=== PATIENT | male | born 1995 | race Caucasian/White ===

== ENCOUNTER 2020-11-03 14:48 | Emergency (ER) | payer BC, SELFPAY ==
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
[2020-11-03 14:58] VITALS: BP 136/80; PULSE 81; RESP 16; TEMP 36.8; O2SAT 99
[2020-11-03] MEDS: TETANUS,DIPHTHERIA,AC PERTUSSIS ADULT (0.5 ML) BOOSTRIX IM (15:16)
[2020-11-03] MEDS: SILVER SULFADIAZINE 1% CR 50 GM JAR (*BKC) 1 APPLIC TOPICAL (15:17)
== END 2020-11-03 15:40 | disposition home or self-care (01) ==
PROVIDERS: Emergency Provider Nurse Practitioner
DX: T23.242A Burn of second degree of multiple left fingers (nail), including thumb, initial encounter (principal); X08.8XXA Exposure to other specified smoke, fire and flames, initial encounter; Z23 Encounter for immunization
CPT/HCPCS: 16020; 90471; 90715; 99213; A9270; G0463

== ENCOUNTER 2020-11-11 08:57 | Emergency (ER) | payer BC, SELFPAY ==
[2020-11-11 09:01] VITALS: BP 118/77; PULSE 102; RESP 16; TEMP 36.9; O2SAT 100
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
[2020-11-11 09:57] VITALS: BP 122/78; PULSE 73; RESP 14; O2SAT 100
== END 2020-11-11 09:56 | disposition home or self-care (01) ==
LOC: ANHED 09:37
PROVIDERS: Emergency Provider Emergency Medicine
DX: T23.012A Burn of unspecified degree of left thumb (nail), initial encounter (principal); T31.0 Burns involving less than 10% of body surface; X03.0XXA Exposure to flames in controlled fire, not in building or structure, initial encounter
CPT/HCPCS: 99281

== ENCOUNTER 2021-03-15 11:26 | Emergency (ER) | payer OTHER, SELFPAY ==
[2021-03-15 11:37] VITALS: BP 125/83; PULSE 85; RESP 16; TEMP 37.1; O2SAT 100
--- NOTE | 2021-03-15 11:53 | ED.EAR ---
HPI - Ear Problem General Chief complaint: Ear Stated complaint: Water in Ears Time Seen by Provider: 03/15/21 11:53 Source: patient Mode of arrival: ambulatory Limitations: no limitations History of Present Illness HPI Narrative: Roger Quevedo is a 25 uo male with a PMH of chronic kidney stones and kidney pain who comes to [facility] with complaints of ear pain intermittently for weeks to months and left eye redness and crusting for the past few days. Related Data Allergies Allergy/AdvReac Type Severity Reaction Status Date / Time amoxicillin Allergy Mild Hives Verified 03/15/21 11:54 Penicillins Allergy Unknown Hives / Verified 03/15/21 11:54 Red Face prochlorperazine Allergy Unknown Other Verified 03/15/21 11:54 promethazine Allergy Unknown Confusion Verified 03/15/21 11:54 dicyclomine AdvReac Unknown Hyperactive Verified 03/15/21 11:54 lorazepam AdvReac Unknown Confusion Verified 03/15/21 11:54 metoclopramide AdvReac Unknown Confusion Verified 03/15/21 11:54 POTASSIUM CLAVULANATE Allergy Mild Unknown Uncoded 03/15/21 11:54 Review of Systems Review of Systems: CONSTITUTIONAL: Denies fever, chills, sweats. EYES: Denies visual changes, redness, left eye discharge. ENT: Denies rhinorrhea, congestion, sore throat, bilateral otalgia. CARDIOVASCULAR: Denies chest pain, palpitations, edema. RESPIRATORY: Denies dyspnea, wheezing, cough GASTROINTESTINAL: Denies abdominal pain, nausea, vomiting, diarrhea. GENITOURINARY: Denies dysuria, hematuria, abnormal discharge SKIN: Denies rash or itching. NEUROLOGIC: Denies numbness, or focal weakness. PSYCHIATRIC: Denies anxiety or depression. [facility] Past Medical History Medical History Burn Kidney stones Family History Family History Other CHF (congestive heart failure) Social History Social History (Updated 03/15/21 @ 11:56 by Tia Mccoy CNP) Smoking status: Current some day smoker Alcohol intake: current Gender identity (if verbalized by the patient): Male Comments At time of signature, I agree with nursing past medical, surgical, social and family history. There is no relevant family history pertinent to the presenting complaint. Exam Narrative: GENERAL: This is a well-nourished, well-developed patient, in mild distress. HEAD: normocephalic, atraumatic. EYES: Sclera clear/white. Vision is grossly intact. Left eye mild injection EARS: External ears normal, auditory canals erythema and without drainage, TMs with fluid behind them. Hearing grossly intact. NOSE: External nose normal without nasal discharge, nares without redness, no rhinorrhea. THROAT: Mucous membranes moist, posterior pharynx mild erythema NECK: Neck supple, non-tender CARDIOVASCULAR: Regular rate and rhythm without murmurs, gallops, or rubs. RESPIRATORY: Clear to auscultation. Breath sounds equal bilaterally. No wheezes, rales, or rhonchi. GASTROINTESTINAL: Abdomen soft, SKIN: warm, intact with no suspicious lesions or rash, good texture and turgor. NEURO: awake, alert, and oriented to person, place and time. There were no obvious focal neurologic abnormalities. Steady gait EXTREMITIES: Normal range of motion. BACK: Nontender without deformity Course Course Emergency Course: Patient comes with complaints of left eye injection and discharge, bilateral ear pain x2 months Start tobramycin for eye discharge Polymyxin eardrops Follow-up with primary care physician Vital Signs Vital signs: Vital Signs Temperature 98.7 F 03/15/21 11:37 Pulse Rate 85 03/15/21 11:37 Respiratory Rate 16 03/15/21 11:37 Blood Pressure 125/83 03/15/21 11:37 Pulse Oximetry 100 03/15/21 11:37 Temperature 98.7 F 03/15/21 11:37 Pulse Rate 85 03/15/21 11:37 Respiratory Rate 16 03/15/21 11:37 Blood Pressure 125/83 03/15/21 11:37 Pulse Oximetry 100 03/15/21 11:37
== END 2021-03-15 12:08 | disposition home or self-care (01) ==
PROVIDERS: Emergency Provider Nurse Practitioner
DX: H92.03 Otalgia, bilateral (principal); H10.32 Unspecified acute conjunctivitis, left eye; F17.200 Nicotine dependence, unspecified, uncomplicated
CPT/HCPCS: 99213; G0463

== ENCOUNTER 2021-03-17 14:28 | Emergency (ER) | payer OTHER, SELFPAY ==
[2021-03-17 14:38] VITALS: BP 150/100; PULSE 65; RESP 16; TEMP 37.1; O2SAT 100
--- NOTE | 2021-03-17 14:40 | ED.SKABFB ---
HPI - Skin/Abscess/Foreign Bdy General Chief complaint: Extremity Problem,Nontraumatic Stated complaint: Ingrown toe nail Time Seen by Provider: 03/17/21 14:38 Source: patient and RN notes reviewed Mode of arrival: ambulatory Limitations: no limitations History of Present Illness HPI narrative: 25-year-old male presents to the [facility] with complaints of an ingrown toenail to the right great toe. Pain, swelling and redness along with pus started last night. Toenails due to the way he cuts his toenails. States he has an appointment with a rn internship. Related Data Allergies Allergy/AdvReac Type Severity Reaction Status Date / Time amoxicillin Allergy Mild Hives Verified 03/17/21 14:37 Penicillins Allergy Unknown Hives / Verified 03/17/21 14:37 Red Face prochlorperazine Allergy Unknown Other Verified 03/17/21 14:37 promethazine Allergy Unknown Confusion Verified 03/17/21 14:37 dicyclomine AdvReac Unknown Hyperactive Verified 03/17/21 14:37 lorazepam AdvReac Unknown Confusion Verified 03/17/21 14:37 metoclopramide AdvReac Unknown Confusion Verified 03/17/21 14:37 POTASSIUM CLAVULANATE Allergy Mild Unknown Uncoded 03/17/21 14:37 Review of Systems Review of Systems: All systems reviewed & are unremarkable except as noted in HPI and below Constitutional: Constitutional: Reports no additional constitutional complaints, Denies chills and Denies fever(s) Eyes: Eyes: Reports no additional eye complaints ENT: Reports system reviewed and no additional complaints, except as documented Cardiovascular: Cardiovascular: Reports no additional cardiovascular complaints Respiratory: Respiratory: Reports no additional respiratory complaints Gastrointestinal: Gastrointestinal: Reports no additional gastrointestinal complaints Musculoskeletal: Musculoskeletal: Reports as per HPI Integumentary/Breasts: Skin/Breast: Reports as per HPI and Reports erythema (Right great toe around the toenail) Psychiatric: Psychiatric: Reports no additional psychiatric complaints Allergic/Immunologic: Allergic/Immunologic: Reports no additional allergic/immunologic complaints [facility] Past Medical History Medical History Burn Kidney stones Family History Family History Other CHF (congestive heart failure) Social History Social History (Reviewed 03/20/21 @ 13:47 by Rakel Telles Smoking status: Current some day smoker Alcohol intake: current Gender identity (if verbalized by the patient): Male Comments At the time of my signature, I reviewed and agree with the nursing past medical, surgical, social, and family history. There is no relevant family history pertinent to the patient complaint. Exam Const: General: healthy appearing, no acute distress and alert Nutritional Appearance: well nourished Orientation/consciousness: patient oriented x3 Limitations: no limitations HENMT: Head: normal to inspection Eyes: Conjunctivae: conjunctivae normal Pupils: Equal, round and reactive pupils present Neck: Neck: normal visual inspection Chest: Chest palpation & inspection: normal inspection of the chest Resp: Effort & Inspection: normal respiratory effort Auscultation: clear to auscultation bilaterally Cardio: Rate: regular rate Rhythm: regular rhythm Back/Spine/Pelvis: Back: no CVA tenderness Skin: Wounds: wounds noted (Fluctuant redness noted to the medial aspect of right great toe) Neuro: General: patient oriented x3, moves all extremities, no meningeal signs and no focal motor deficits Speech: normal speech Gait exam (Neuro): Normal gait present Extrem: General: normal to inspection Psych: Appearance: grossly normal and well kempt Mental Status: mental status grossly normal Affect: normal affect Attitude: cooperative Thought content: Yes Normal thought content present Course Course Emergency Course: Discharge instructi
[2021-03-17] MEDS: LIDOCAINE HCL 1% LOCAL INJ 20 ML VIAL 5 ML INFILTRATE (14:50)
== END 2021-03-17 15:18 | disposition home or self-care (01) ==
PROVIDERS: Emergency Provider Nurse Practitioner
DX: L03.031 Cellulitis of right toe (principal); L60.0 Ingrowing nail; F17.200 Nicotine dependence, unspecified, uncomplicated
CPT/HCPCS: 10060; 99213; G0463

== ENCOUNTER 2021-09-27 12:43 | Emergency (ER) | payer OTHER, SELFPAY ==
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
[2021-09-27 12:51] VITALS: BP 125/73; PULSE 84; RESP 16; TEMP 37.1; O2SAT 100
[2021-09-27 12:57] VITALS: BP 125/73; PULSE 84; RESP 16; TEMP 37.1; O2SAT 100
== END 2021-09-27 13:05 | disposition short-term general hospital (02) ==
LOC: EXPCOLL 12:46
PROVIDERS: Emergency Provider Nurse Practitioner
DX: N50.811 Right testicular pain (principal); N50.812 Left testicular pain; F17.200 Nicotine dependence, unspecified, uncomplicated
CPT/HCPCS: 99212; G0463

== ENCOUNTER 2021-09-27 14:58 | Emergency (ER) | payer OTHER, SELFPAY ==
--- NOTE | ~2021-09-27 | US_ITS ---
EXAMINATION: US scrotum doppler DATE: 09/27/2021 15:26 INDICATION: Bilateral pain. TECHNIQUE: Grayscale and Doppler ultrasound images of the testes were obtained. COMPARISON: None. FINDINGS: The right testis measures 4.3 x 2.3 x 3.2. The left testis measures 4.3 x 2.5 x 3.3. There is normal vascular flow to both testes. The right epididymis is normal with normal vascular flow. The left epididymis is normal with normal vascular flow. No hydrocele. Small bilateral varicoceles. IMPRESSION: 1. Small bilateral varicoceles. 2. No sonographic evidence of torsion. Reviewed, dictated and finalized at location K.
--- NOTE | 2021-09-27 15:11 | PC.NURSE ---
Upon entering room for triage pt was noted to be in ultrasound. Per conventional machinist pt was alert and oriented and able to ambulate to room independently.
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
[2021-09-27 15:23] VITALS: BP 128/82; PULSE 97; RESP 18; O2SAT 100
--- NOTE | 2021-09-27 15:45 | PC.NURSE ---
Lab called to add STD testing to Urine in lab.
[2021-09-27 15:56] LABS: Add Urine Microscopic? NO; Appearance Urine Clear (Clear); Bilirubin Urine Negative (Negative); Blood Urine Negative (Negative); Color Urine Yellow (Yellow); Glucose Urine UA Negative (Negative); Ketones Urine Negative (Negative); Leukocyte Esterase Ur Negative LEU/UL (Negative); Nitrate Urine Negative (Negative); Protein Urine Negative (Negative); Specific Grav Ur 1.026 (1.001-1.035); Urobilinogen Urine Negative mg/dL (<2.0)
[2021-09-27] MEDS: GENTAMICIN SULFATE INJ 80 MG/2 ML VIAL 240 MG IM (16:47)
[2021-09-27] MEDS: AZITHROMYCIN 250 MG TABLET 2000 MG PO (16:49)
[2021-09-27 17:05] VITALS: BP 112/88; PULSE 78; RESP 18; O2SAT 98
== END 2021-09-27 17:06 | disposition home or self-care (01) ==
PROVIDERS: Emergency Medicine; Emergency Provider Emergency Medicine
DX: N50.812 Left testicular pain (principal); N50.811 Right testicular pain; H10.9 Unspecified conjunctivitis; Z87.442 Personal history of urinary calculi; F17.210 Nicotine dependence, cigarettes, uncomplicated
CPT/HCPCS: 76870; 81003; 87491; 87591; 93976; 96372; 99283; 99284; A9270; J1580

== ENCOUNTER 2023-02-18 17:09 | Emergency (ER) | payer OTHER, SELFPAY ==
[2023-02-18 17:35] VITALS: BP 147/75; PULSE 64; RESP 18; TEMP 37.5; O2SAT 100
--- NOTE | 2023-02-18 18:13 | ED.NAVMDI ---
HPI - Nausea/Vomiting/Diarrhea General Chief complaint: Nausea/Vomiting/Diarrhea Stated complaint: Vomiting Time Seen by Provider: 02/18/23 18:05 Source: patient, family, RN notes reviewed and old records reviewed Mode of arrival: ambulatory Limitations: no limitations History of Present Illness HPI Narrative: 27 year old male accompanied by father who presents to express care with complaints of nausea vomiting body aches chills sore throat and bilateral ear pain for 3 days duration. Patient reports that he has taken Ibuprofen. Patient reports that he doesn't feel well and has nothing to do with his marijuana use, became upset when asked if he smoked marijuana frequently, states hasn't smoked any since sick. Patient reports that he last vomited 40 minutes prior to arrival. MD elicited complaint: nausea, vomiting, abdominal pain (generalized) and other (sore throat ear pain, body aches, fever) Onset (ago): day(s) (3) Description of vomiting: food contents and watery Associated nausea: Yes Associated abdominal pain: Yes Location of pain: other (mid abdominal) Pain scale (0-10): 8 Treatment prior to arrival: NSAIDs Related Data Allergies Allergy/AdvReac Type Severity Reaction Status Date / Time amoxicillin Allergy Mild Hives Verified 02/19/23 18:34 Penicillins Allergy Unknown Hives / Verified 02/19/23 18:34 Red Face prochlorperazine Allergy Unknown Other Verified 02/19/23 18:34 promethazine Allergy Unknown Confusion Verified 02/19/23 18:34 dicyclomine AdvReac Unknown Hyperactive Verified 02/19/23 18:34 lorazepam AdvReac Unknown Confusion Verified 02/19/23 18:34 metoclopramide AdvReac Unknown Confusion Verified 02/19/23 18:34 POTASSIUM CLAVULANATE Allergy Mild Unknown Uncoded 02/19/23 18:34 Review of Systems Review of Systems: CONSTITUTIONAL:Reports tactile fever, chills, or sweats. ENT: Reports rhinorrhea, congestion, sore throat, bilateral otalgia. CARDIOVASCULAR: Denies chest pain, palpitations, or edema. RESPIRATORY: Denies cough or dyspnea. GASTROINTESTINAL: Reports mid abdomen abdominal pain, nausea, vomiting, diarrhea. GENITOURINARY: Denies dysuria or hematuria. SKIN: Denies rash or itching. MUSCULOSKELETAL: Denies back pain, joint pain, reports body aches NEUROLOGIC: Denies headache, numbness, or weakness. All systems reviewed & are unremarkable except as noted in HPI and below PMFSH Past Medical History Medical History (Updated 02/19/23 @ 18:36 by Cherrie Morales NP) Burn Cyclical vomiting Depression Kidney stones Pancreatitis age 14 unknown cause Surgical History Surgical History (Updated 02/19/23 @ 18:27 by Cherrie Morales NP) History of tonsillectomy Status post placement of ureteral stent in past related to kidney stone Family History Family History Other CHF (congestive heart failure) Social History Social History (Updated 02/19/23 @ 18:25 by Cherrie Morales NP) Smoking status: Current some day smoker Tobacco type: e-cigarettes/vaping Alcohol intake: current Alcohol use details: states rare alcohol Substance use: current Substance use type: marijuana Last use: reports daily use Gender identity (if verbalized by the patient): Male Comments At time of signature, agree with nursing past medical, surgical, social and family history. There is no relevant family history pertinent to the presenting complaint Exam Narrative: GENERAL: Well-appearing, well-nourished, and in no acute distress. HEAD: Normocephalic, atraumatic. EYES: PERRLA, conjunctivae clear, and EOMI. ENT: Nares clear. Mucous membranes moist. Oropharynx without edema, erythema, or lesions. Tonsils not present and throat without exudate.TM's normal with dull light reflex. NECK: Supple. No lymphadenopathy CHEST: Speaks in full sentences. No respiratory distress.SAO2 100% on room air HEART: Regular rate and rhythm. ABDOMEN: Soft, f
== END 2023-02-18 18:20 | disposition home or self-care (01) ==
PROVIDERS: Emergency Provider Registered Nurse
DX: B34.9 Viral infection, unspecified (principal); R11.2 Nausea with vomiting, unspecified; F17.219 Nicotine dependence, cigarettes, with unspecified nicotine-induced disorders; Z20.822 Contact with and (suspected) exposure to COVID-19
CPT/HCPCS: 87081; 87426; 87804; 87880; 99213; C9803; G0463

== ENCOUNTER 2023-02-19 18:33 | Emergency (ER) | payer OTHER, SELFPAY ==
--- NOTE | ~2023-02-19 | CT_ITS ---
EXAMINATION: CT abdomen pelvis w con DATE: 02/20/2023 00:55 INDICATION: Nausea and vomiting. Upper abdominal pain for 4 days. TECHNIQUE: Computed tomography (CT) of the abdomen and pelvis was performed with 100 cc Omnipaque 350 intravenous contrast. The dose-length product was 171.76 mGy-cm. Automated exposure control and iter ative reconstruction technique were employed. COMPARISON: CT dated 10/25/2017 FINDINGS: There are punctate nonobstructing right renal stones. Lung bases are unremarkable. Heart si ze normal. No significant pleural or pericardial effusion. Small low-density lesion right hepatic lob e, most likely benign cyst or hemangioma. The spleen, pancreas, adrenal glands and kidneys are unrema rkable. Gallbladder is unremarkable. No free air or free fluid. No significant vascular abnormality. No lymphadenopathy. Nonobstructive bowel pattern. No free air or free fluid. IMPRESSION: 1. Nonobstructing right nephrolithiasis. Reviewed, dictated and finalized at location A.
[2023-02-19 19:26] VITALS: BP 136/81; PULSE 57; RESP 20; TEMP 37.3; O2SAT 100
[2023-02-19 19:44] LABS: Basophils Percent Auto 0.3 % (0.2-1.2); Hematocrit 44.6 % (42.0-52.0); Hemoglobin 15.9 g/dL (14.0-18.0); Immature Granulocyte Absolute 0.04 K/mm3 (0.00-0.031); Immature Granulocyte Percent A 0.3 % (0-0.5); Lymphocytes Absolute Auto 1.33 K/mm3 (0.9-3.2); Lymphocytes Percent Auto 11.1 % (18.3-44.2); Mean Corpuscular HGB Conc 35.7 g/dl (32-36); Mean Corpuscular Hemoglobin 31.4 pg (26-34); Mean Platelet Volume 10.2 fl (7.4-10.4); Monocytes Absolute Auto 0.4 K/mm3 (0.1-0.6); Monocytes Percent Auto 3.7 % (2.6-8.5); Neutrophils Absolute Auto 10.1 K/mm3 (1.3-6.7); Neutrophils Percent Auto 84.6 % (45.5-73.1); Platelet Count Result 303 k/mm3 (150-375); Red Blood Count 5.07 M/mm3 (4.6-6.20); Red Cell Distribution Width 11.9 % (11.5-14.5)
[2023-02-19 20:09] LABS: Alanine Aminotransferase 31 U/L (6-50); Albumin Level 5.3 g/dL (3.5-5.1); Alkaline Phosphatase 69 U/L (38-126); Anion Gap 13 mmol/L (8-16); Aspartate Amino Transferase 30 U/L (17-59); Bilirubin,Total 1.1 mg/dL (0.2-1.3); Blood Urea Nitrogen 13 mg/dL (9-20); Calcium 10.1 mg/dL (8.4-10.2); Carbon Dioxide 30 mmol/L (22-30); Chloride 95 mmol/L (98-107); Estimated CRCL calculation 71 ml/min; Estimated Glomerular Filt Rate > 60; Glucose 105 mg/dL (65-110); Lipase 35 U/L (23-300); Potassium 4.5 mmol/L (3.4-5.0); Sodium 138 mmol/L (137-145)
[2023-02-20] MEDS: ONDANSETRON INJ 4 MG/2 ML VIAL IV PUSH (00:23)
[2023-02-20] MEDS: SODIUM CHLORIDE 0.9% IV 1,000 ML 999 ML IV CONT ×2 (00:23→02:37)
--- NOTE | 2023-02-20 00:37 | ED.NAVMDI ---
HPI - Nausea/Vomiting/Diarrhea General Chief complaint: Nausea/Vomiting/Diarrhea Stated complaint: n/v x several days Time Seen by Provider: 02/19/23 23:46 Source: patient and old records reviewed Mode of arrival: ambulatory Limitations: no limitations History of Present Illness HPI Narrative: Patient is a 27-year-old male, with past medical history of cyclic vomiting syndrome, daily marijuana use, who presents ED with report of nausea and vomiting. Patient reports he has been unable to keep down any food or drink over the last 4 days due to persistent vomiting. He also reports having persistent pain throughout his upper abdomen. He has not been unable to take anything for pain due to the vomiting. He states he was recently around his cousins who were ill with similar symptoms. Patient also reports having a cough, subjective fevers, chills, body aches. Denies diarrhea or constipation. Patient was seen in urgent care a few days ago and prescribed Zofran, but there was an issue with the pharmacy and he was unable to pick this up yet. Related Data Allergies Allergy/AdvReac Type Severity Reaction Status Date / Time amoxicillin Allergy Mild Hives Verified 02/19/23 18:34 Penicillins Allergy Unknown Hives / Verified 02/19/23 18:34 Red Face prochlorperazine Allergy Unknown Other Verified 02/19/23 18:34 promethazine Allergy Unknown Confusion Verified 02/19/23 18:34 dicyclomine AdvReac Unknown Hyperactive Verified 02/19/23 18:34 lorazepam AdvReac Unknown Confusion Verified 02/19/23 18:34 metoclopramide AdvReac Unknown Confusion Verified 02/19/23 18:34 POTASSIUM CLAVULANATE Allergy Mild Unknown Uncoded 02/19/23 18:34 Review of Systems Review of Systems: CONSTITUTIONAL: See HPI. CARDIOVASCULAR: Denies chest pain. RESPIRATORY: See HPI. GASTROINTESTINAL: See HPI. GENITOURINARY: Denies dysuria or hematuria. MUSCULOSKELETAL: Reports myalgia. NEUROLOGIC: Denies headache, numbness, or weakness. All systems reviewed & are unremarkable except as noted in HPI and below PMFSH Past Medical History Medical History Burn Cyclical vomiting Depression Kidney stones Pancreatitis age 14 unknown cause Surgical History Surgical History History of tonsillectomy Status post placement of ureteral stent in past related to kidney stone Family History Family History Other CHF (congestive heart failure) Social History Social History Smoking status: Current some day smoker Tobacco type: e-cigarettes/vaping Alcohol intake: current Alcohol use details: states rare alcohol Substance use: current Substance use type: marijuana Last use: reports daily use Gender identity (if verbalized by the patient): Male Exam Narrative: GENERAL: Mildly ill appearing, thin, actively vomiting on exam. HEAD: Normocephalic, atraumatic. NECK: Supple. No adenopathy, no masses. RESPIRATORY: Airway patent, respirations nonlabored. Clear to auscultation bilaterally, no rales, rhonchi, wheezing. CARDIOVASCULAR: Regular rate and rhythm without murmurs, rubs, or gallops. Radial pulses 2+ and equal bilaterally. ABDOMINAL: Soft, diffuse tenderness throughout upper abdomen, no significant focal tenderness, nondistended, no hepatosplenomegaly. Normoactive BS. MUSCULOSKELETAL: Moves all extremities. Strength/ROM intact without gross deformities. SKIN: Warm, dry, normal color. No rashes. Eczematous rash to bilateral hands, which patient reports is chronic related to frequent handwashing. NEURO: A&O X3. Speech clear. Cranial nerves II-XII grossly intact. Steady gait. No ataxic movements. PSYCHIATRIC: Appropriate mood and affect. Normal interaction. Course Vital Signs Vital signs: Vital Signs Temperatur
[2023-02-20 00:41] LABS: Add Urine Microscopic? YES; Appearance Urine Cloudy (Clear); Bacteria Urine None Seen /hpf; Bilirubin Urine Negative (Negative); Blood Urine Negative (Negative); Color Urine Yellow (Yellow); Glucose Urine UA Negative (Negative); Ketones Urine 4+ mg/dL (Negative); Leukocyte Esterase Ur Negative LEU/UL (Negative); Nitrate Urine Negative (Negative); Non Pathogenic Casts 0-2; Protein Urine Trace mg/dL (Negative); RBC Urine 0-2 /hpf (0-2); Specific Grav Ur 1.022 (1.001-1.035); Squamous Epithelial Cell Urine None seen /hpf (Few); WBC Urine 0-5 /hpf
[2023-02-20 01:13] LABS: Influenza A QL RT-PCR Negative (Negative); Influenza B QL RT-PCR Negative (Negative); SARS-CoV-2 RNA PCR Negative (Negative)
[2023-02-20] MEDS: KETOROLAC 15 MG/ML VIAL (*BKC) IV PUSH (03:54)
[2023-02-20] MEDS: PANTOPRAZOLE SODIUM IV 40 MG VIAL IV PUSH (03:54)
[2023-02-20 04:54] VITALS: BP 118/72; PULSE 74; RESP 16; O2SAT 100
== END 2023-02-20 04:55 | disposition home or self-care (01) ==
PROVIDERS: Student in an Organized Health Care Education/Training Program; Emergency Provider Physician Assistant
DX: E86.0 Dehydration (principal); R11.2 Nausea with vomiting, unspecified; R10.9 Unspecified abdominal pain; Z20.822 Contact with and (suspected) exposure to COVID-19; F17.290 Nicotine dependence, other tobacco product, uncomplicated; Z87.442 Personal history of urinary calculi
CPT/HCPCS: 36415; 74177; 80053; 81001; 83690; 85025; 87636; 96361; 96374; 96375; 99284; C9113; J1885; J2405; J7030; Q9967

== ENCOUNTER 2023-05-31 13:25 | Inpatient (IN) | payer OTHER, MEDICAID, SELFPAY ==
--- NOTE | ~2023-05-31 | CT_ITS ---
EXAMINATION: CT abdomen pelvis w con DATE: 05/31/2023 15:56 INDICATION: RUQ abdomen pain, hx pancreatitis and Elevated LFT TECHNIQUE: Computed tomography (CT) of the abdomen and pelvis was performed with 100 mL Omnipaque-350 intravenous contrast. Automated exposure control and iterative reconstruction technique were employe d. The dose-length product was 172.10 mGy-cm. COMPARISON: 02/20/2023. FINDINGS: Lower thorax: Unremarkable Liver: 9 mm right lobe cyst or hemangioma. Subcentimeter hypodensities, too small to characterize but also likely represent cysts or hemangiomas. Biliary/Gallbladder: Gallbladder is normal. No bile duct dilation. Pancreas: Edematous slightly enlarged pancreas. Spleen: Normal. Adrenals:No mass. Kidneys: No suspicious mass, obstructing stone, or hydronephrosis. Nonobstructing punctate right ajime l calculi. GI tract: Moderate distal esophageal and gastric wall edema No small or large bowel dilation. Normal appendix. Mesentery/Peritoneum: No ascites, mass, or free air. Retroperitoneum: No mass. Pelvis: Partially distended urinary bladder with mild wall thickening. Soft Tissues: Soft tissues and body wall unremarkable. Bones: No acute osseous finding. IMPRESSION: Moderate esophagitis/gastritis. Mild edema and enlargement of the pancreas, may reflect uncomplicated acute interstitial pancreatitis in the appropriate clinical context. Correlate with pancreatic labs. Cystitis versus urinary bladder wall thickening from incomplete distention. Reviewed, dictated and finalized at location K. R CORE MACHINE OPERATOR IMPRESSION: Moderate esophagitis/gastritis. Mild edema and enlargement of the pancreas, may reflect uncomplicated acute int erstitial pancreatitis in the appropriate clinical context. Correlate with panc reatic labs. Cystitis versus urinary bladder wall thickening from incomplete distention.
[2023-05-31 13:28] VITALS: BP 141/81; PULSE 62; RESP 18; TEMP 36.8; O2SAT 100
[2023-05-31 14:01] LABS: Basophils Percent Auto 0.2 % (0.2-1.2); Hematocrit 44.9 % (42.0-52.0); Hemoglobin 15.3 g/dL (14.0-18.0); Immature Granulocyte Absolute 0.03 K/mm3 (0.00-0.031); Immature Granulocyte Percent A 0.3 % (0-0.5); Lymphocytes Absolute Auto 1.24 K/mm3 (0.9-3.2); Lymphocytes Percent Auto 10.9 % (18.3-44.2); Mean Corpuscular HGB Conc 34.1 g/dl (32-36); Mean Corpuscular Hemoglobin 30.8 pg (26-34); Mean Corpuscular Volume 90.3 fl (80-100); Mean Platelet Volume 10.4 fl (7.4-10.4); Monocytes Absolute Auto 0.6 K/mm3 (0.1-0.6); Monocytes Percent Auto 5.1 % (2.6-8.5); Neutrophils Absolute Auto 9.6 K/mm3 (1.3-6.7); Neutrophils Percent Auto 83.5 % (45.5-73.1); Platelet Count Result 306 k/mm3 (150-375); Red Blood Count 4.97 M/mm3 (4.6-6.20); Red Cell Distribution Width 12.1 % (11.5-14.5); White Blood Count 11.4 K/mm3 (4.5-10.0)
[2023-05-31 14:04] LABS: Appearance Urine Clear (Clear); Bacteria Urine None Seen /hpf; Bilirubin Urine Negative (Negative); Blood Urine Negative (Negative); Color Urine Yellow (Yellow); Glucose Urine UA Negative (Negative); Ketones Urine 2+ mg/dL (Negative); Leukocyte Esterase Ur Negative LEU/UL (Negative); Nitrate Urine Negative (Negative); Non Pathogenic Casts 0-2; Protein Urine Trace mg/dL (Negative); RBC Urine 0-2 /hpf (0-2); Specific Grav Ur 1.018 (1.001-1.035); Squamous Epithelial Cell Urine None seen /hpf (Few); WBC Urine 0-5 /hpf; pH Urine 7.5 (5.0-9.0)
[2023-05-31 14:08] LABS: Add Urine Microscopic? YES
[2023-05-31 14:27] VITALS: BP 139/78; PULSE 63; RESP 17; O2SAT 100
--- NOTE | 2023-05-31 15:04 | ED.ABDPAIN ---
HPI - Abdominal Pain General Chief Complaint: Nausea/Vomiting/Diarrhea Stated Complaint: N/V/D Time Seen by Provider: 05/31/23 14:02 Source: patient Mode of arrival: ambulatory Limitations: no limitations History of Present Illness HPI narrative: Roger is a 28-year-old male patient presenting to the ER today with complaints of right upper quadrant/mid upper abdominal pain, nausea, and vomiting x3 days. States he has had a slight fever of 101. History of pancreatitis and elevated liver function test. States his abdominal pain is a stabbing pain and currently rates it a 10. Related Data Allergies Allergy/AdvReac Type Severity Reaction Status Date / Time amoxicillin Allergy Mild Hives Verified 05/31/23 13:49 Penicillins Allergy Unknown Hives / Verified 05/31/23 13:49 Red Face prochlorperazine Allergy Unknown Other Verified 05/31/23 13:49 promethazine Allergy Unknown Confusion Verified 05/31/23 13:49 dicyclomine AdvReac Unknown Hyperactive Verified 05/31/23 13:49 lorazepam AdvReac Unknown Confusion Verified 05/31/23 13:49 metoclopramide AdvReac Unknown Confusion Verified 05/31/23 13:49 POTASSIUM CLAVULANATE Allergy Mild Unknown Uncoded 05/31/23 13:49 Review of Systems Review of Systems: Pertinent positives per HPI. Patient denies any fever, chills, rash, headache, visual changes, dizziness, cough, shortness of breath, chest pain, palpitations, diarrhea, constipation,or any urinary issues. PMFSH Past Medical History Medical History Burn Cyclical vomiting Depression Kidney stones Pancreatitis age 14 unknown cause Surgical History Surgical History History of tonsillectomy Status post placement of ureteral stent in past related to kidney stone Family History Family History Other CHF (congestive heart failure) Social History Social History Social History: Surrogate medical decision maker: Juana Sierra, mother. Code status: Full code. Smoking status: Former smoker Tobacco type: e-cigarettes/vaping Alcohol intake: never Alcohol use details: Rare alcohol use in moderation. Substance use: never Substance use type: marijuana Last use: reports daily use Do You Feel Safe in your Home?: Yes Lack of Transportation: No Lack of Food: Never True Current Housing: I Have Housing Concerned About Future Housing: No Difficulty Paying Gas/Electric Bills: No Difficulty Paying for Meds: No Currently Unemployed: No Education: High School Diploma/GED Difficulty w/ Childcare or Family Care: No Spiritual care concerns: No Comments At the time of my signature, I reviewed and agree with the nursing past medical, surgical, social, and family history. There is no relevant family history pertinent to the patient complaint. Exam Narrative: General: Well-developed, well nourished, and mild distress due to pain Head: Normocephalic, atraumatic. Mucous membranes dry Cardio: Regular rate and rhythm, s1 and s2 normal, no murmur appreciated. Resp: Clear to auscultation bilaterally, no rhonchi, rales, wheezing or rubs. Abdomen: Soft, pliable, bowel sounds present in all quadrants, tender to palpation over the right upper quadrant and mid upper quadrant, no organomegly, no CVAT tenderness. Course Course Emergency Course: Portions of this record may have been created with voice recognition software. Vital Signs Vital signs: Vital Signs Temperature 36.8 C 05/31/23 13:28 Pulse Rate 62 05/31/23 13:28 Respiratory Rate 18 05/31/23 13:28 Blood Pressure 141/81 H 05/31/23 13:28 Pulse Oximetry 100 05/31/23 13:28 Oxygen Delivery Room Air 05/31/23 13:28 Temperature 36.8 C 05/31/23 13:28 Pulse Rate 63 05/31/23 14:27 Respir
[2023-05-31 15:25] LABS: Alanine Aminotransferase 37 U/L (6-50); Albumin Level 4.8 g/dL (3.5-5.1); Alkaline Phosphatase 72 U/L (38-126); Anion Gap 12 mmol/L (8-16); Aspartate Amino Transferase 38 U/L (17-59); Bilirubin,Total 1.1 mg/dL (0.2-1.3); Blood Urea Nitrogen 14 mg/dL (9-20); Carbon Dioxide 27 mmol/L (22-30); Chloride 99 mmol/L (98-107); Estimated CRCL calculation 80 ml/min; Estimated Glomerular Filt Rate > 60; Glucose 103 mg/dL (65-110); Lipase 370 U/L (23-300); Potassium 4.1 mmol/L (3.4-5.0); Sodium 138 mmol/L (137-145)
[2023-05-31] MEDS: HYDROmorphone HCL INJ (*CRX) 1 MG/ML SYR 0.5 MG IV PUSH ×2 (15:31→21:38)
[2023-05-31] MEDS: SODIUM CHLORIDE 0.9% IV 1,000 ML 999 ML IV CONT ×2 (15:31→17:31)
[2023-05-31] MEDS: ONDANSETRON INJ 4 MG/2 ML VIAL IV PUSH ×2 (15:32→17:31)
[2023-05-31 15:33] VITALS: BP 129/76; PULSE 60; RESP 17; O2SAT 100
[2023-05-31 16:13] LABS: Influenza A QL RT-PCR Negative (Negative); Influenza B QL RT-PCR Negative (Negative); RSV RNA, RT-PCR Negative (Negative); SARS-CoV-2 RNA PCR Negative (Negative)
[2023-05-31 16:33] VITALS: BP 113/58; PULSE 68; RESP 17; O2SAT 100
[2023-05-31] MEDS: HYDROmorphone HCL INJ (*CRX) 1 MG/ML SYR IV PUSH (17:32)
[2023-05-31 17:33] VITALS: BP 113/59; PULSE 55; RESP 15; O2SAT 100
--- NOTE | 2023-05-31 17:46 | PM.IMHP ---
H&P: HPI History of Present Illness Date/Time: 05/31/23 18:00 Chief Complaint: Abdominal pain, nausea, vomiting. Narrative: This is a 28-year-old with reported history of pancreatitis, kidney stones, cyclic vomiting, and history of daily marijuana use though he reportedly has cut back heavily who presented to the emergency department via private vehicle for evaluation of abdominal pain, nausea, and vomiting. The patient provides the following history. About 3 days ago he awoke with generalized abdominal discomfort which seemed to settle more so in the periumbilical region and right upper quadrant. He has difficulties describing the pain but reports that is severe and almost cramping in nature. Associated symptoms include multiple episodes of nonbloody, watery diarrhea, nausea, and too numerous to count bouts of nonbloody and nonbilious emesis. He endorses having a lot of stress recently and more heartburn than usual. He drinks 3 cups of coffee a day and has maybe 1 or 2 months or drinks a week. He does not drink alcohol. He denies NSAID use. No known history of peptic ulcers or gallbladder disease. He reports any chills but no fever. In the ED: He was afebrile on arrival but reports having a temperature of 101? at home. Blood pressures and pulse have been stable. CMP and CBC were unremarkable aside for in my WBC count of 11.4 and a lipase of 370. UA was positive for 2+ ketones. CT of the abdomen and pelvis showed moderate esophagitis/gastritis and mild edema enlargement of the pancreas which may reflect uncomplicated acute interstitial pancreatitis. Thus far he has received 2 L normal saline, 4 mg ondansetron, and a total of 1.5 mg hydromorphone. He is being admitted in this setting for supportive care. Review of Systems Review of Systems: Twelve systems were reviewed and are negative except for as per HPI. [facility] Past Medical History Medical History (Updated 05/31/23 @ 22:45 by Enid Meraz PA-C) Cyclical vomiting Depression Kidney stones Pancreatitis At age 14, cause unknown. Surgical History Surgical History (Updated 05/31/23 @ 17:50 by Enid Meraz PA-C) History of tonsillectomy History of ureter stent Family History Family History Other CHF (congestive heart failure) Social History Social History Social History: Surrogate medical decision maker: Juana Sierra, mother. Code status: Full code. Smoking status: Former smoker Tobacco type: e-cigarettes/vaping Alcohol intake: never Alcohol use details: Rare alcohol use in moderation. Substance use: never Substance use type: marijuana Last use: reports daily use Do You Feel Safe in your Home?: Yes Lack of Transportation: No Lack of Food: Never True Current Housing: I Have Housing Concerned About Future Housing: No Difficulty Paying Gas/Electric Bills: No Difficulty Paying for Meds: No Currently Unemployed: No Education: High School Diploma/GED Difficulty w/ Childcare or Family Care: No Spiritual care concerns: No Meds Home Medications and Allergies Allergies Allergy/AdvReac Type Severity Reaction Status Date / Time amoxicillin Allergy Mild Hives Verified 05/31/23 13:49 Penicillins Allergy Unknown Hives / Verified 05/31/23 13:49 Red Face prochlorperazine Allergy Unknown Other Verified 05/31/23 13:49 promethazine Allergy Unknown Confusion Verified 05/31/23 13:49 dicyclomine AdvReac Unknown Hyperactive Verified 05/31/23 13:49 lorazepam AdvReac Unknown Confusion Verified 05/31/23 13:49 metoclopramide AdvReac Unknown Confusion Verified 05/31/23 13:49 POTASSIUM CLAVULANATE Allergy Mild Unknown Uncoded 05/31/23 13:49 Vital Signs Vital Signs - 24 hr 05/31/23 13:28 05/31/23 14:27 05/31/23 15:33 Temperature 98.2 F Pulse Rate 62 63 60 Respiratory Rate 18 17 17 Blood Pressure 141/81 H 139/78
[2023-05-31] MEDS: SODIUM CHLORIDE 0.9% IV 1,000 ML 125 ML IV CONT (18:42)
--- NOTE | 2023-05-31 21:17 | PC.NURSE ---
patient requesting pain medication and nausea medication
--- NOTE | 2023-05-31 21:18 | PC.NURSE ---
Informed DANIELA Meraz that patient is requesting pain and nausea medication
[2023-05-31 22:00] VITALS: BP 118/63; PULSE 60; RESP 16; TEMP 36.9; O2SAT 100
[2023-06-01] MEDS: HYDROmorphone HCL INJ (*CRX) 1 MG/ML SYR 0.5 MG IV PUSH ×7 (01:55→22:15)
[2023-06-01] MEDS: SODIUM CHLORIDE 0.9% IV 1,000 ML 125 ML IV CONT ×3 (02:58→17:35)
[2023-06-01] MEDS: ONDANSETRON INJ 4 MG/2 ML VIAL IV PUSH (04:33)
[2023-06-01 06:00] VITALS: BP 139/82; PULSE 70; RESP 16; TEMP 36.3; O2SAT 100
[2023-06-01 06:32] LABS: Hematocrit 42.5 % (42.0-52.0); Hemoglobin 14.4 g/dL (14.0-18.0); Mean Corpuscular HGB Conc 33.9 g/dl (32-36); Mean Corpuscular Volume 91.4 fl (80-100); Mean Platelet Volume 10.2 fl (7.4-10.4); Platelet Count Result 245 k/mm3 (150-375); Red Blood Count 4.65 M/mm3 (4.6-6.20); White Blood Count 9.5 K/mm3 (4.5-10.0)
[2023-06-01 06:45] LABS: Alanine Aminotransferase 39 U/L (6-50); Albumin Level 4.3 g/dL (3.5-5.1); Alkaline Phosphatase 61 U/L (38-126); Anion Gap 11 mmol/L (8-16); Aspartate Amino Transferase 51 U/L (17-59); Bilirubin,Total 1.3 mg/dL (0.2-1.3); Blood Urea Nitrogen 12 mg/dL (9-20); Calcium 8.7 mg/dL (8.4-10.2); Carbon Dioxide 22 mmol/L (22-30); Chloride 106 mmol/L (98-107); Estimated CRCL calculation 90 ml/min; Estimated Glomerular Filt Rate > 60; Glucose 86 mg/dL (65-110); Lipase 1591 U/L (23-300); Potassium 3.8 mmol/L (3.4-5.0); Sodium 139 mmol/L (137-145)
[2023-06-01 11:12] VITALS: BMI 19.6
--- NOTE | 2023-06-01 12:46 | PM.IMPN ---
Progress Note: A&P Assessment and Plan (1) Pancreatitis: Code(s): K85.90 - Acute pancreatitis without necrosis or infection, unspecified Status: Acute Assessment and Plan: Continue IVF hydration Continue prn anti-emetics Continue prn pain meds Continue PPI therapy Trend Lipase Consider GI consult if symptoms persist and there is increasing Lipase. NPO except ice chips (2) Esophagitis with gastritis: Code(s): K29.70 - Gastritis, unspecified, without bleeding; K20.90 - Esophagitis, unspecified without bleeding Status: Acute Assessment and Plan: See #1 (3) Mild dehydration: Code(s): E86.0 - Dehydration Status: Resolved Assessment and Plan: Resolved (4) Cyclical vomiting: Code(s): R11.15 - Cyclical vomiting syndrome unrelated to migraine Status: Acute Assessment and Plan: Likely secondary to Marijuana use. Supportive care at this time with IVF, Anti-emetics and Pain meds Time Spent With Patient Time with patient: 15 - 25 minutes Subjective Date/time seen: 06/01/23 0930 Interval history: This 28 year old male pt with PMH of cyclical vomiting, Marijuana use and Pancreatitis was examined at the bedside today in interval assessment after being admitted to the hospital for Esophagitis, Gastritis and Pancreatitis. He has interval increase in his Lipase today to 1591 with continued abdominal pain. No further N/V and his pain is currently the same as his arrival. He denies any new complaints of CP, dyspnea. Review of Systems Review of Systems: All systems reviewed & are unremarkable except as noted in HPI and below Exam Narrative: General: Well-developed, nontoxic-appearing male sitting up in bed in no acute distress. Weight: 52.1 kg. BMI: 19.7. HEENT: PERRL, EOMI. Sclera anicteric. Tacky mucous membranes. Neck: Supple. Respiratory: Lungs are clear to auscultation bilaterally. Cardiovascular: Regular rate and rhythm with S1-S2. Gastrointestinal: Abdomen is soft, flat, and nondistended with positive bowel sounds. He is tender to palpation in the epigastric region. No guarding or rebound tenderness. Negative Nolasco sign. Skin: Warm and dry. No rash or lesions on limited exam. Extremities: No cyanosis, clubbing, or edema. Radial and pedal pulses intact. Neurological: Alert. Cranial nerves 2-12 are grossly intact. No gross focal deficits to casual conversation. Psychiatric: Cooperative with appropriate mood and affect. Objective Data Vital Signs Vital Signs: Vital Signs - 24 hr 05/31/23 13:28 05/31/23 14:27 05/31/23 15:33 Temperature 98.2 F Pulse Rate 62 63 60 Respiratory Rate 18 17 17 Blood Pressure 141/81 H 139/78 129/76 Pulse Oximetry 100 100 100 Oxygen Delivery Room Air 05/31/23 16:33 05/31/23 17:33 05/31/23 22:00 Temperature 98.4 F Pulse Rate 68 55 L 60 Respiratory Rate 17 15 16 Blood Pressure 113/58 L 113/59 L 118/63 Pulse Oximetry 100 100 100 Oxygen Delivery 06/01/23 06:00 06/01/23 08:00 Temperature 97.3 F L Pulse Rate 70 Respiratory Rate 16 Blood Pressure 139/82 Pulse Oximetry 100 Oxygen Delivery Room Air Intake/Output Intake/Output: Intake & Output 05/29/23 05/30/23 05/31/23 06/01/23 23:59 23:59 23:59 23:59 Intake Total 1000 2100 Balance 1000 2100 Meds/Results Medications: Active Medications Generic Name Dose Route Start Last Admin Trade Name Freq PRN Reason Stop Dose Admin Acetaminophen 650 mg 05/31/23 22:47 Acetaminophen 325 Mg Tablet PO Q6H PRN Mild Pain (1-3) or Fever Hydromorphone HCl 0.5 mg 05/31/23 21:20 06/01/23 11:58 Hydromorphone Hcl Inj (*Crx) 1 Mg/Ml Syr IV PUSH 0.5 mg Q3H PRN Administration Pain Rated 7-10 Sodium Chloride 1,000 mls @ 125 mls/hr 05/31/23 17:20 06/01/23 11:57 Normal Saline Iv IV CONT 125 mls/hr .Q8H ESAU Administration Ondansetron HCl 4 mg 05/31/23 21:20 06/01/23 04:33 Ondanse
[2023-06-01 14:00] VITALS: BP 135/68; PULSE 63; RESP 18; TEMP 36.5; O2SAT 100
[2023-06-01 22:00] VITALS: BP 137/69; PULSE 64; RESP 16; TEMP 37.1; O2SAT 100
[2023-06-01] MEDS: PANTOPRAZOLE SODIUM IV 40 MG VIAL IV PUSH (22:15)
[2023-06-02] MEDS: SODIUM CHLORIDE 0.9% IV 1,000 ML 125 ML IV CONT ×3 (02:37→18:25)
[2023-06-02] MEDS: HYDROmorphone HCL INJ (*CRX) 1 MG/ML SYR 0.5 MG IV PUSH ×2 (05:45→08:19)
[2023-06-02 06:00] VITALS: BP 135/68; PULSE 59; RESP 16; TEMP 36.6; O2SAT 99
[2023-06-02 06:53] LABS: Hematocrit 39.4 % (42.0-52.0); Hemoglobin 13.6 g/dL (14.0-18.0); Mean Corpuscular HGB Conc 34.5 g/dl (32-36); Mean Corpuscular Hemoglobin 31.1 pg (26-34); Mean Platelet Volume 10.4 fl (7.4-10.4); Platelet Count Result 246 k/mm3 (150-375); Red Blood Count 4.38 M/mm3 (4.6-6.20); Red Cell Distribution Width 11.5 % (11.5-14.5); White Blood Count 8.3 K/mm3 (4.5-10.0)
[2023-06-02 07:07] LABS: Alanine Aminotransferase 31 U/L (6-50); Albumin Level 4.1 g/dL (3.5-5.1); Alkaline Phosphatase 59 U/L (38-126); Anion Gap 13 mmol/L (8-16); Aspartate Amino Transferase 33 U/L (17-59); Bilirubin,Total 1.5 mg/dL (0.2-1.3); Blood Urea Nitrogen 9 mg/dL (9-20); Calcium 8.8 mg/dL (8.4-10.2); Carbon Dioxide 20 mmol/L (22-30); Chloride 104 mmol/L (98-107); Estimated CRCL calculation 101 ml/min; Estimated Glomerular Filt Rate > 60; Glucose 69 mg/dL (65-110); Lipase 372 U/L (23-300); Potassium 3.6 mmol/L (3.4-5.0); Sodium 137 mmol/L (137-145)
[2023-06-02] MEDS: PANTOPRAZOLE SODIUM IV 40 MG VIAL IV PUSH ×2 (08:18→21:01)
--- NOTE | 2023-06-02 13:24 | PM.IMPN ---
Progress Note: A&P Assessment and Plan (1) Pancreatitis: Code(s): K85.90 - Acute pancreatitis without necrosis or infection, unspecified Status: Acute Assessment and Plan: Continue IVF hydration prn anti-emetics, prn pain meds Continue PPI therapy Trend Lipase Consider GI consult if symptoms persist and there is increasing Lipase. Advance diet as tolerated. (2) Esophagitis with gastritis: Code(s): K29.70 - Gastritis, unspecified, without bleeding; K20.90 - Esophagitis, unspecified without bleeding Status: Acute Assessment and Plan: See #1 (3) Mild dehydration: Code(s): E86.0 - Dehydration Status: Resolved Assessment and Plan: Resolved (4) Cyclical vomiting: Code(s): R11.15 - Cyclical vomiting syndrome unrelated to migraine Status: Acute Assessment and Plan: Likely secondary to Marijuana use. Supportive care at this time with IVF, Anti-emetics and Pain meds Subjective Date/time seen: 06/02/23 13:24 Interval history: Patient denies any nausea, vomiting, diarrhea and abdominal pain. Patient continues to be on IV fluids. He will advance diet. If patient tolerates diet well will discontinue IV fluids. Pain medication decelerated. Exam Narrative: GENERAL: Comfortable, no acute distress HENMT: moist mucous membranes EYES: EOM intact b/l NECK: no lymphadenopathy RESPIRATORY: clear to auscultation CARDIO: RRR GI: soft, nontender, bowel sounds present SKIN: no rashes EXTREMITIES: no edema, redness or tenderness Objective Data Vital Signs Vital Signs: Vital Signs - 24 hr 06/01/23 14:00 06/01/23 22:00 06/02/23 06:00 Temperature 97.7 F 98.8 F 97.9 F Pulse Rate 63 64 59 L Respiratory Rate 18 16 16 Blood Pressure 135/68 137/69 135/68 Pulse Oximetry 100 100 99 Oxygen Delivery 06/02/23 08:15 Temperature Pulse Rate Respiratory Rate Blood Pressure Pulse Oximetry Oxygen Delivery Room Air Intake/Output Intake/Output: Intake & Output 05/30/23 05/31/23 06/01/23 06/02/23 23:59 23:59 23:59 23:59 Intake Total 1000 3340 1222 Balance 1000 3340 1222 Meds/Results Medications: Active Medications Generic Name Dose Route Start Last Admin Trade Name Freq PRN Reason Stop Dose Admin Acetaminophen 650 mg 05/31/23 22:47 Acetaminophen 325 Mg Tablet PO Q6H PRN Mild Pain (1-3) or Fever Hydromorphone HCl 0.5 mg 05/31/23 21:20 06/02/23 08:19 Hydromorphone Hcl Inj (*Crx) 1 Mg/Ml Syr IV PUSH 0.5 mg Q3H PRN Administration Pain Rated 7-10 Sodium Chloride 1,000 mls @ 125 mls/hr 05/31/23 17:20 06/02/23 02:37 Normal Saline Iv IV CONT 125 mls/hr .Q8H ESAU Administration Ondansetron HCl 4 mg 05/31/23 21:20 06/01/23 04:33 Ondansetron Inj 4 Mg/2 Ml Vial IV PUSH 4 mg Q6H PRN Administration Nausea And Vomiting Pantoprazole Sodium 40 mg 06/01/23 21:30 06/02/23 08:18 Pantoprazole Sodium Iv 40 Mg Vial IV PUSH 40 mg Q12HR ESAU Administration Radiology Results: ITS Impressions Abdomen/Pelvis CT 05/31/23 15:57 IMPRESSION: Moderate esophagitis/gastritis. Mild edema and enlargement of the pancreas, may reflect uncomplicated acute interstitial pancreatitis in the appropriate clinical context. Correlate with pancreatic labs. Cystitis versus urinary bladder wall thickening from incomplete distention. Labs Labs: Laboratory Results - last 24 hr 06/02/23 06:22 WBC 8.3 RBC 4.38 L Hgb 13.6 L Hct 39.4 L MCV 90.0 MCH 31.1 MCHC 34.5 RDW 11.5 Plt Count 246 MPV 10.4 Sodium 137 Potassium 3.6 Chloride 104 Carbon Dioxide 20 L Anion Gap 13 BUN 9 Creatinine 0.70 Estim Creat Clear Calc 101 Estimated GFR > 60 Glucose 69 Calcium 8.8 Total Bilirubin 1.5 H AST 33 ALT 31 Alkaline Phosphatase 59 Total Protein 7.0 Albumin 4.1 Lipase 372 H
[2023-06-02 14:00] VITALS: BP 130/65; PULSE 86; RESP 18; TEMP 36.6; O2SAT 99
[2023-06-02] MEDS: HYDROcodone/acetaminophen (*CRX) 5-325 MG TABLET 1 TAB PO ×2 (15:39→21:14)
[2023-06-02 22:00] VITALS: BP 124/66; PULSE 65; RESP 18; TEMP 36.5; O2SAT 100
[2023-06-03] MEDS: SODIUM CHLORIDE 0.9% IV 1,000 ML 125 ML IV CONT (02:33)
[2023-06-03 05:14] VITALS: BP 123/63; PULSE 65; RESP 16; TEMP 36.4; O2SAT 100
[2023-06-03] MEDS: PANTOPRAZOLE SODIUM IV 40 MG VIAL IV PUSH (08:21)
[2023-06-03] MEDS: HYDROcodone/acetaminophen (*CRX) 5-325 MG TABLET 1 TAB PO (08:30)
--- NOTE | 2023-06-03 10:14 | PM.DS ---
DS: Admitting Diagnosis Discharge Date 06/03/23 Admitting Diagnosis Pancreatitis DS: Discharge Diagnosis Discharge Diagnosis (1) Pancreatitis: Code(s): K85.90 - Acute pancreatitis without necrosis or infection, unspecified Status: Acute (2) Esophagitis with gastritis: Code(s): K29.70 - Gastritis, unspecified, without bleeding; K20.90 - Esophagitis, unspecified without bleeding Status: Acute (3) Mild dehydration: Code(s): E86.0 - Dehydration Status: Resolved (4) Cyclical vomiting: Code(s): R11.15 - Cyclical vomiting syndrome unrelated to migraine Status: Acute DS: Summary Hospital Course Hospital Course: This is a 28-year-old male with a past medical history of pancreatitis, kidney stones, cyclic vomiting and daily marijuana use that presented to the ED on 05/31/2023 due to generalized abdominal discomfort. He had multiple episodes of nonbloody watery diarrhea, nausea, non Lyn nonbloody emesis. He drinks approximately 3 cups coffee daily. He presented with 101 fever and white blood cell count of 11.4 as well as lipase in the 300s. He was admitted treated for pancreatitis. He was put NPO and IV fluids. Pain medication was given to the patient. Once patient was feeling much better his diet was advanced. Patient's pain well managed. Last vital signs are stable and he is medically clear for discharge at this time. Time Spent with Patient Time attestation: Total time spent providing and/or coordinating discharge services: Exam Narrative: GENERAL: Comfortable, no acute distress HENMT: moist mucous membranes EYES: EOM intact b/l NECK: no lymphadenopathy RESPIRATORY: clear to auscultation CARDIO: RRR GI: soft, nontender, bowel sounds present SKIN: no rashes EXTREMITIES: no edema, redness or tenderness Discharge Plan Discharge Attending physician on discharge: Татьяна Keane Consulting providers: Sharmaine Varma Discharging Clinician: Danita Darnell Patient Disposition: Home, Self-Care Activity: as tolerated Diet: regular Discharge Instructions: DISCHARGE INSTRUCTIONS: Call your doctor if: -You have severe pain in your abdomen and you are vomiting. -You have a fever. -You continue to lose weight without trying. -Your skin or the whites of your eyes turn yellow. -You have questions or concerns about your condition or care. Self-care: -Rest when you feel it is needed. Slowly start to do more each day. -Do not drink any alcohol. -Diet: low fiber/bland -Do not smoke. Discharge disposition: Take medications as prescribed Monitor blood pressures Avoid social areas, you wear a mask when in social settings Encouraged to continue with yearly vaccinations Return to the emergency department if he developed sudden shortness of breath, chest pain, nausea, vomiting, upset stomach or intractable diarrhea Return to the emergency department if you develop fever greater than 100.4 Follow-up with the primary care physician within 1-2 weeks Thank you for [facility] for your healthcare needs Patient Instructions: Antibiotic Form Stand Alone Forms: General Discharge Information Follow-up/Referrals: PHYSICIAN,SWITCHGEAR REPAIRER [Primary Care Provider] - Date of admission: 06/01/23 10:03 Primary Care Provider: PHYSICIAN,SWITCHGEAR REPAIRER Admitting Provider: Aleshia Deluca Attending physician on admission: Aleshia Deluca Condition: Stable
== END 2023-06-03 11:20 | disposition home or self-care (01) | DRG 440 ==
LOC: ANHED 17:16 → ANH3MEDSUR 17:41
PROVIDERS: Emergency Medicine; Nurse Practitioner Adult Health; Physician Assistant; Admitting Provider Student in an Organized Health Care Education/Training Program; Emergency Provider Nurse Practitioner Family; Visit Provider Internal Medicine Critical Care Medicine
DX: K85.80 Other acute pancreatitis without necrosis or infection (principal); K29.70 Gastritis, unspecified, without bleeding; K20.90 Esophagitis, unspecified without bleeding; E86.0 Dehydration; R11.15 Cyclical vomiting syndrome unrelated to migraine; F12.90 Cannabis use, unspecified, uncomplicated; Z20.822 Contact with and (suspected) exposure to COVID-19; Z87.442 Personal history of urinary calculi; Z87.891 Personal history of nicotine dependence
CPT/HCPCS: 36415; 74177; 80053; 81001; 83690; 83735; 85025; 85027; 87637; 96361; 96374; 96375; 96376; 99285; A9270; C9113; G0378; G0379; J1170; J2405; J7030; Q9967

== ENCOUNTER 2023-12-05 22:03 | Emergency (ER) | payer MEDICAID, SELFPAY ==
--- NOTE | ~2023-12-05 | CT_ITS ---
CT of the Abdomen and Pelvis: Indication: Abdominal pain Technique: 2.5 mm axial scans were obtained through the abdomen and pelvis following intravenous adm inistration of 100 cc of Omnipaque 350. Dose reduction technique was used on this scan by utilizing a utomated exposure control and iterative reconstruction technique. The dose-length product (DLP) was 1 76.09 mGy-cm. COMPARISON: 05/31/2023 Findings: Scans through the lung bases are unremarkable. The liver, spleen, pancreas, gallbladder, adrenals and kidneys are within normal limits. No evidence of aortic aneurysm. No lymphadenopathy. No bowel obstruction or bowel wall thickening. There is no evidence to suggest acute appendicitis. Images through the pelvis were performed. Questionable urinary bladder wall thickening. No pelvic mas s seen. No ascites. Impression: Questionable cystitis versus under distention of the urinary bladder. Correlate with urinalysis. Reviewed, dictated and finalized at [facility]. Impression: Questionable cystitis versus under distention of the urinary bladder. Correlate with urinalysis.
[2023-12-05 22:04] VITALS: BP 124/75; PULSE 77; RESP 16; TEMP 36.9; O2SAT 100
[2023-12-05 22:26] LABS: Basophils Percent Auto 0.2 % (0.2-1.2); Hematocrit 43.8 % (42.0-52.0); Hemoglobin 15.3 g/dL (14.0-18.0); Immature Granulocyte Absolute 0.07 K/mm3 (0.00-0.031); Immature Granulocyte Percent A 0.4 % (0-0.5); Lymphocytes Absolute Auto 0.67 K/mm3 (0.9-3.2); Lymphocytes Percent Auto 3.8 % (18.3-44.2); Mean Corpuscular HGB Conc 34.9 g/dl (32-36); Mean Corpuscular Hemoglobin 31.7 pg (26-34); Mean Corpuscular Volume 90.7 fl (80-100); Mean Platelet Volume 10.6 fl (7.4-10.4); Monocytes Absolute Auto 0.2 K/mm3 (0.1-0.6); Monocytes Percent Auto 1.3 % (2.6-8.5); Neutrophils Absolute Auto 16.4 K/mm3 (1.3-6.7); Neutrophils Percent Auto 94.3 % (45.5-73.1); Platelet Count Result 299 k/mm3 (150-375); Red Blood Count 4.83 M/mm3 (4.6-6.20); Red Cell Distribution Width 12.5 % (11.5-14.5); White Blood Count 17.4 K/mm3 (4.5-10.0)
[2023-12-05 22:37] LABS: Alanine Aminotransferase 33 U/L (6-50); Albumin Level 5.3 g/dL (3.5-5.1); Alkaline Phosphatase 81 U/L (38-126); Anion Gap 13 mmol/L (4-12); Aspartate Amino Transferase 26 U/L (17-59); Bilirubin,Total 0.5 mg/dL (0.2-1.3); Blood Urea Nitrogen 10 mg/dL (9-20); Calcium 10.3 mg/dL (8.4-10.2); Carbon Dioxide 25 mmol/L (22-30); Chloride 105 mmol/L (98-107); Estimated CRCL calculation 102 ml/min; Estimated Glomerular Filt Rate > 60; Glucose 124 mg/dL (65-110); Lipase 32 U/L (23-300); Potassium 4.4 mmol/L (3.4-5.0); Sodium 143 mmol/L (137-145)
--- NOTE | 2023-12-05 23:15 | ED.GENADULT ---
HPI - General Adult General Chief complaint: Nausea/Vomiting/Diarrhea Stated complaint: vomiting Time Seen by Provider: 12/05/23 23:06 Source: patient Mode of arrival: ambulatory Limitations: no limitations History of Present Illness HPI narrative: Patient is a 27-year-old male, with past medical history of cyclic vomiting syndrome, daily marijuana use, who presents ED with report of nausea and vomiting. Patient reports he has been unable to keep down any food or drink since 6am when this started. He also reports having persistent pain throughout his upper abdomen. States he was unable to keep down a Zofran capsule. endorses greater than 10 episodes of vomiting today. Endorses 5 episodes of diarrhea. Denies GI bleeding symptoms. Denies known sick contacts. Denies urinary symptoms. Related Data Allergies Allergy/AdvReac Type Severity Reaction Status Date / Time amoxicillin Allergy Mild Hives Verified 05/31/23 13:49 Penicillins Allergy Unknown Hives / Verified 05/31/23 13:49 Red Face prochlorperazine Allergy Unknown Other Verified 05/31/23 13:49 promethazine Allergy Unknown Confusion Verified 05/31/23 13:49 dicyclomine AdvReac Unknown Hyperactive Verified 05/31/23 13:49 lorazepam AdvReac Unknown Confusion Verified 05/31/23 13:49 metoclopramide AdvReac Unknown Confusion Verified 05/31/23 13:49 POTASSIUM CLAVULANATE Allergy Mild Unknown Uncoded 05/31/23 13:49 Review of Systems Review of Systems: All systems as dictated in [facility] Past Medical History Medical History (Updated 12/06/23 @ 01:56 by Patrick Moss PA-C) Cyclical vomiting Depression Kidney stones Pancreatitis At age 14, cause unknown. Surgical History Surgical History (Updated 05/31/23 @ 17:50 by Enid Meraz PA-C) History of tonsillectomy History of ureter stent Family History Family History Other CHF (congestive heart failure) Social History Social History Social History: Surrogate medical decision maker: Juanaabdi Sierra, mother. Code status: Full code. Smoking status: Former smoker Tobacco type: e-cigarettes/vaping Alcohol intake: never Alcohol use details: Rare alcohol use in moderation. Substance use: never Substance use type: marijuana Last use: reports daily use Do You Feel Safe in your Home?: Yes Lack of Transportation: No Lack of Food: Never True Current Housing: I Have Housing Concerned About Future Housing: No Difficulty Paying Gas/Electric Bills: No Difficulty Paying for Meds: No Currently Unemployed: No Education: High School Diploma/GED Difficulty w/ Childcare or Family Care: No Spiritual care concerns: No Exam Narrative: GENERAL: Well-appearing, well-nourished, and in no acute distress. HEAD: Normocephalic, atraumatic. EYES: PERRLA and EOMI. ENT: Nares clear, no rhinorrhea or epistaxis. Mucous membranes moist. Oropharynx without tonsillar hypertrophy exudate or other lesions. NECK: Supple. No adenopathy or masses. CHEST: No respiratory distress. Clear to auscultation. No wheezes rales or rhonchi HEART: Regular rate and rhythm. No murmur heard. Normal peripheral pulses. ABDOMEN: Mild epigastric and right upper quadrant tenderness. Soft, otherwise nontender, nondistended, normal active bowel sounds. MSK: Normal range of motion. No edema. SKIN: Warm, dry, no rash. NEURO: Alert and oriented x4. No focal deficits. PSYCH: Normal mood and affect. Course Vital Signs Vital signs: Vital Signs Temperature 98.4 F 12/05/23 22:04 Pulse Rate 77 12/05/23 22:04 Respiratory Rate 16 12/05/23 22:04 Blood Pressure 124/75 12/05/23 22:04 Pulse Oximetry 100 12/05/23 22:04 Oxygen Delivery Room Air 12/05/23 22:04 Temperature 98.4 F 12/05/23 22:04 Pulse Rate 85 12/06/23 00:49 Respiratory Rate 14 12/06/23 00:49 Blood Press
[2023-12-05] MEDS: LACTATED RINGERS 1,000 ML 999 ML IV CONT ×2 (23:34)
[2023-12-05] MEDS: ONDANSETRON INJ 4 MG/2 ML VIAL IV PUSH (23:35)
[2023-12-05] MEDS: MORPHINE SULFATE (*CRX) 4 MG/ML INJ IV PUSH (23:35)
[2023-12-05 23:42] LABS: Influenza A QL RT-PCR Negative (Negative); Influenza B QL RT-PCR Negative (Negative); RSV RNA, RT-PCR Negative (Negative); SARS-CoV-2 RNA PCR Negative (Negative)
[2023-12-05 23:51] LABS: Appearance Urine Clear (Clear); Bacteria Urine None Seen /hpf; Bilirubin Urine Negative (Negative); Blood Urine Negative (Negative); Color Urine Yellow (Yellow); Glucose Urine UA Negative (Negative); Ketones Urine 3+ mg/dL (Negative); Leukocyte Esterase Ur Negative LEU/UL (Negative); Nitrate Urine Negative (Negative); Protein Urine 1+ mg/dL (Negative); RBC Urine 0-2 /hpf (0-2); Specific Grav Ur 1.022 (1.001-1.035); Squamous Epithelial Cell Urine None Seen /hpf (Few); Urobilinogen Urine 0.2 mg/dL (<2.0); WBC Urine 0-5 /hpf (0-3); pH Urine 8.5 (5.0-9.0)
[2023-12-05 23:59] LABS: Add Urine Microscopic? YES
[2023-12-06 00:49] VITALS: BP 127/74; PULSE 85; RESP 14; O2SAT 100
== END 2023-12-06 02:17 | disposition home or self-care (01) ==
PROVIDERS: Student in an Organized Health Care Education/Training Program; Emergency Provider Physician Assistant; PCP Emergency Medicine
DX: K52.9 Noninfective gastroenteritis and colitis, unspecified (principal); Z20.822 Contact with and (suspected) exposure to COVID-19; Z87.442 Personal history of urinary calculi; Z87.891 Personal history of nicotine dependence
CPT/HCPCS: 36415; 74177; 80053; 81001; 83690; 85025; 87637; 96361; 96374; 96375; 99284; J2270; J2405; J7120; Q9967

== ENCOUNTER 2025-01-04 17:53 | Emergency (ER) | payer OTHER, SELFPAY ==
--- NOTE | ~2025-01-04 | XR_ITS ---
HISTORY: middle finger slammed in door COMPARISON: None TECHNIQUE: 3 views of the right hand were performed. FINDINGS: No acute fracture is identified. The joint spaces are preserved. The carpal arcs are intact. Bone mineralization is unremarkable. Mild distal soft tissue swelling. No radiopaque foreign body is identified. IMPRESSION: No acute fracture or dislocation within the right hand, as detailed above. Reviewed, dictated and finalized at location A.
[2025-01-04 18:01] VITALS: BP 134/73; PULSE 98; RESP 20; TEMP 37.3; O2SAT 100
--- NOTE | 2025-01-04 18:01 | ED_ITS ---
HPI - Extremity Injury (Upper) General Chief Complaint: Extremity Injury, Upper Stated Complaint: Right Hand Finger Pain Time Seen by Provider: 01/04/25 17:56 Source: patient Mode of arrival: ambulatory Limitations: no limitations History of Present Illness HPI narrative: Patient is a 29-year-old male who presents with right middle finger pain and swelling after getting it caught in a heavy door 3-4 days ago. Patient reports blood under in base of nail along with swelling around edge of fingernail. Related Data Allergies Allergy/AdvReac Type Severity Reaction Status Date / Time amoxicillin Allergy Mild Hives Verified 01/04/25 17:58 Penicillins Allergy Unknown Hives / Verified 01/04/25 17:58 Red Face prochlorperazine Allergy Unknown Other Verified 01/04/25 17:58 promethazine Allergy Unknown Confusion Verified 01/04/25 17:58 dicyclomine AdvReac Unknown Hyperactive Verified 01/04/25 17:58 lorazepam AdvReac Unknown Confusion Verified 01/04/25 17:58 metoclopramide AdvReac Unknown Confusion Verified 01/04/25 17:58 POTASSIUM CLAVULANATE Allergy Mild Unknown Uncoded 01/04/25 17:58 Review of Systems 2 Review of Systems: All systems reviewed & are unremarkable except as noted in HPI and below Constitutional: Constitutional: Denies body ache(s), Denies chills, Denies fatigue, Denies fever(s), Denies headache(s), Denies malaise and Denies weakness Eyes: Eyes: Denies blurry vision, Denies irritation and Denies loss of vision ENT: Denies otalgia, Denies headache(s), Denies nasal discharge, Denies sinus pain and Denies sore throat Cardiovascular: Cardiovascular: Denies chest pain, Denies irregular heart rhythm and Denies dyspnea Respiratory: Respiratory: Denies dyspnea Gastrointestinal: Gastrointestinal: Denies abdominal pain, Denies melena, Denies hematochezia, Denies diarrhea, Denies nausea and Denies vomiting Musculoskeletal: Musculoskeletal: Denies back pain, Denies myalgias and Denies arthralgias Integumentary/Breasts: Skin/Breast: Denies pruritus, Reports erythema, Denies rash and Reports skin swelling Neurologic: Denies headache(s), Denies loss of vision and Denies weakness Psychiatric: Psychiatric: Reports no additional psychiatric complaints Endocrine: Endocrine: Denies fatigue PMFSH Past Medical History Medical History Depression Cyclical vomiting Pancreatitis At age 14, cause unknown. Kidney stones Surgical History Surgical History History of ureter stent History of tonsillectomy Family History Family History Other CHF (congestive heart failure) Social History Social History Social History: Surrogate medical decision maker: Juana Sierra, mother. Code status: Full code. Smoking status: Former smoker Tobacco type: e-cigarettes/vaping Alcohol intake: never Alcohol use details: Rare alcohol use in moderation. Substance use: never Substance use type: marijuana Last use: reports daily use Do You Feel Safe in your Home?: Yes Lack of Transportation: No Lack of Food: Never True Current Housing: I Have Housing Concerned About Future Housing: No Difficulty Paying Gas/Electric Bills: No Difficulty Paying for Meds: No Currently Unemployed: No Education: High School Diploma/GED Difficulty w/ Childcare or Family Care: No Spiritual care concerns: No Comments At time of signature, agree with nursing past medical, surgical, social and family history. There is no relevant family history pertinent to the presenting complaint. Exam 2 Const: General: cooperative, healthy appearing, comfortable, no acute distress and well nourished Nutritional Appearance: well nourished O rientation/consciousness: patient oriented x3 Limitations: no limitations HENMT: Head: normal to inspection, normocephalic and atraumatic Ears: h earing grossly normal bilaterally and external ears normal Face/Nose/Sinus: N ormal external nose present, normal facial exam and face symmetric Face and sinus: normal facial exam and face symmetric Mouth: Yes lip normal Eyes: General: appearance normal, both eyes and all related structures A lignment and Position: alignment normal and position normal Periorbital: p eriorbital findings normal Eyelids: eyelids normal Pupils: Equal, round and reactive pupils present EOM: EOMs intact bilaterally Neck: Neck: normal visual inspection, full ROM and supple Chest: Chest palpation & inspection: normal inspection of the chest Resp: Effort & Inspection: normal respiratory effort and able to speak in complete sentences Auscultation: clear to auscultation bilaterally Cardio: Rate: regular rate Rhythm: regular rhythm Heart sounds: S1 normal heart sound present and S2 normal heart sound present GI: Inspection: normal to inspection Skin: General skin exam: normal color and no rashes or lesions noted Neuro: General: patient oriented x3 and moves all extremities Cranial nerves: Yes Equal, round and reactive pupils present Speech: normal speech Gait exam (Neuro): Normal gait present Extrem: General: normal to inspection, full ROM and no edema Hand/finger images: 1. Subungual hematoma 2. Area of swelling and mild erythema. Psych: Appearance: grossly normal and well kempt Mental Status: mental status grossly normal Speech and movement: Normal speech and movement present Affect: normal affect Attitude: cooperative Thought process: Normal thought process present Course Course Emergency Course: Patient is aware of diagnosis, understands and agrees to treatment plan. Anticipatory guidance given. Patient agrees to follow-up as directed and is aware of reasons to seek care at the emergency department. Portions of this record may have been created with voice recognition software Level of Care: Express Care Visit Vital Signs Vital signs: Reviewed Procedures Abscess I/D hand: Date of Incision: 01/04/25 Time of Incision: 19:20 Side (if applicable): right (Middle finger) Local Anesthetic: lidocaine 1% Amount of anesthesia used (mL): 1 Technique: incised with #11 blade Amount of fluid expressed (mL): 1 Irrigation: No Packing used?: none I&D Results: Blood Complications: pain and bleeding Abcess I&D Additional Comments: Procedure explained to patient verbal consent. Digital block performed. MDM - Extremity Injury (Upper) [facility] Narrative Medical decision making narrative: X-ray shows no signs of fracture. Did not cauterize subungual hematoma based on the length of time that has passed. Will treat with antibiotics Pt well hydrated appearing, in no respiratory distress, hemodynamically stable. Recommend supportive care. The patient is stable at time of discharge the clinical impression was discussed and the patient was given the opportunity to ask questions, which were addressed as completely as possible given the information available at present. Anticipatory guidance and return to care precautions were discussed and the importance of primary care follow-up was stressed and encouraged. The patient voiced understanding of the plan, indications to return, and the need for follow-up. Patient is appropriate for outpatient treatment and follow-up. Differential Diagnosis Differential diagnosis: Likely other (Subungual hematoma, paronychia, cellulitis) Medical Records Attestation: I reviewed the patient's medical records. Imaging Data Radiologist's impression: HISTORY: middle finger slammed in door COMPARISON: None TECHNIQUE: 3 views of the right hand were performed. FINDINGS: No acute fracture is identified. The joint spaces are preserved. The carpal arcs are intact. Bone mineralization is unremarkable. Mild distal soft tissue swelling. No radiopaque foreign body is identified. IMPRESSION: No acute fracture or dislocation within the right hand, as detailed above. Discharge Plan Discharge Clinical Impression: Subungual hematoma, Paronychia Finger pain Qualifiers: Laterality: right Qualified Code(s): M79.644 - Pain in right finger(s) Patient Disposition: Home Condition: Stable Instructions: Subungual Hematoma (ED), Paronychia (ED) Additional Instructions: Soak your nail: Soak your nail in a mixture of equal parts vinegar and water 3 or 4 times each day. This will help decrease inflammation. Apply a warm compress: Soak a washcloth in warm water and place it on your nail. This will help decrease inflammation. Elevate: Raise your nail above the level of your heart as often as you can. This will help decrease swelling and pain. Prop your nail on pillows or blankets to keep it elevated comfortably. Use lotion: Apply lotion after you wash your hands. This will prevent your skin from becoming too dry. Please follow-up with your primary care doctor in the next 1-2 days. If you cannot follow-up with your primary care doctor please go to the ED for any urgent issues. 2) If you have any worsening of symptoms or any other concerns please go to the ED immediately. 3) Please take medications as prescribed andcontinue taking your home medications as usual. Patient Language: Belgian Prescriptions: New sulfamethoxazole-trimethoprim 800-160 mg tablet 1 tablet PO Q12H 7 Days Qty: 14 0RF No Action ondansetron 4 mg tablet,disintegrating 4 mg PO Q8H PRN (Reason: nausea and vomiting) Qty: 10 0RF Follow-up/Referrals: Osvaldo Malave MD [Primary Care Provider] - 3 Days Stand Alone Forms: Work/School Release IP Time of Disposition: 19:33
[2025-01-04] MEDS: LIDOCAINE 1% LOCAL INJ 2 ML AMPUL INFILTRATE (18:48)
== END 2025-01-04 19:33 | disposition home or self-care (01) ==
PROVIDERS: Emergency Provider Nurse Practitioner Family; PCP Emergency Medicine
DX: S60.131A Contusion of right middle finger with damage to nail, initial encounter (principal); W23.2XXA Caught, crushed, jammed or pinched between a moving and stationary object, initial encounter; L03.011 Cellulitis of right finger; Z87.891 Personal history of nicotine dependence
CPT/HCPCS: 10060; 73130; 99213; G0463; J2003